=== PATIENT | female | born 1950 | race Caucasian/White ===

== ENCOUNTER 2023-10-11 09:47 | Outpatient (RCR) | payer MEDICARE, OTHER, SELFPAY | END 2023-10-11 23:59 | disposition home or self-care (01) | LOC: ROT 09:47 | PROVIDERS: ATTENDING PHYSICIAN Nurse Practitioner Adult Health; FAMILY PHYSICIAN Nurse Practitioner | DX: R41.3 Other amnesia (principal); Z73.6 Limitation of activities due to disability | CPT/HCPCS: 97167; 97530 ==

== ENCOUNTER 2023-11-08 06:17 | Outpatient (RCR) | payer MEDICARE, OTHER, SELFPAY | END 2023-11-08 23:59 | disposition home or self-care (01) | LOC: ROT 06:17 | PROVIDERS: ATTENDING PHYSICIAN Nurse Practitioner Adult Health; FAMILY PHYSICIAN Nurse Practitioner | DX: R41.3 Other amnesia (principal); R47.02 Dysphasia; Z73.6 Limitation of activities due to disability | CPT/HCPCS: 92507; 92523; 97530 ==

== ENCOUNTER 2023-11-26 06:57 | Outpatient (RCR) | payer MEDICARE, OTHER, SELFPAY | END 2023-11-26 09:00 | disposition home or self-care (01) | LOC: ROT 06:57 | PROVIDERS: ATTENDING PHYSICIAN Nurse Practitioner Adult Health; FAMILY PHYSICIAN Nurse Practitioner | DX: R41.3 Other amnesia (principal); R47.02 Dysphasia; F80.2 Mixed receptive-expressive language disorder | CPT/HCPCS: 92507 ==

== ENCOUNTER → 2023-12-12 08:14 | Outpatient (REF) | payer MEDICARE, OTHER, SELFPAY | LOC: HWRCS 08:14 | PROVIDERS: ATTENDING PHYSICIAN Nuclear Medicine Nuclear Cardiology; FAMILY PHYSICIAN Nurse Practitioner | DX: I10 Essential (primary) hypertension (principal); I34.9 Nonrheumatic mitral valve disorder, unspecified; I35.1 Nonrheumatic aortic (valve) insufficiency; E78.00 Pure hypercholesterolemia, unspecified | CPT/HCPCS: 93306 ==

== ENCOUNTER → 2024-06-20 09:21 | Outpatient (REF) | payer MEDICARE, OTHER, SELFPAY ==
[2024-06-20 12:34] LABS: ALT (SGPT) 22 U/L (0-35); AST (SGOT) 33 U/L (14-36); Albumin 4.3 g/dl (3.5-5.0); Alkaline Phosphatase 71 U/L (38-126); Blood Urea Nitrogen 19 mg/dl (7-17); Calcium 9.5 mg/dl (8.4-10.2); Carbon Dioxide 29 mmol/L (22-30); Chloride 95 mmol/L (98-107); Glucose 91 mg/dl (70-99); Potassium 4.3 mmol/L (3.5-5.1); Sodium 134 mmol/L (135-145); Total Bilirubin 0.7 mg/dl (0.2-1.3); Total Cholesterol 225 mg/dl (50-199); Total Protein 6.7 g/dl (6.3-8.2); Triglyceride 146 mg/dl (10-149); Very Low Density Lipoprotein 29 mg/dl (0-30); eGFR > 60.00
[2024-06-20 12:44] LABS: HDL Cholesterol 74 mg/dl; LDL Cholesterol, Calculated 122 mg/dl
[2024-06-20 12:50] LABS: % Basophils 0.6 % (0-2); % Eosinophils 1.1 % (0-6); % Immature Granulocytes 0.2 % (0-0.5); % Lymphocytes 24.4 % (20.5-51.1); % Monocytes 6.9 % (1.7-9.3); % Neutrophils 66.8 % (42.2-75.2); Absolute Eosinophils 0.1 10^3/uL (0-0.7); Absolute Lymphocytes 1.6 10^3/uL (1.2-3.4); Absolute Monocytes 0.5 10^3/uL (0.1-0.6); Absolute Neutrophils 4.4 10^3/uL (1.4-6.5); Hemoglobin 12.9 g/dL (12.0-16.0); Mean Corp Hgb Conc. 33.9 g/dL (33.0-37.0); Mean Corpuscular Hgb 31.6 pg (27.0-31.0); Mean Corpuscular Volume 93.1 fL (81.0-99.0); Mean Platelet Volume 10.5 fL (7.4-10.4); Nucleated Red Blood Cells % 0 %; Platelet Count 215 10^3/uL (130-400); Red Blood Cell Count 4.08 10^6/uL (4.20-5.40); Red Cell Dist. Width 12.3 % (11.5-14.5); White Blood Cell Count 6.6 10^3/uL (4.8-10.8)
== END ==
LOC: HWLAB 09:21
DX: I10 Essential (primary) hypertension (principal); Z82.49 Family history of ischemic heart disease and other diseases of the circulatory system
CPT/HCPCS: 36415; 80053; 80061; 85025

== ENCOUNTER → 2024-07-08 13:09 | Outpatient (REF) | payer MEDICARE, OTHER, SELFPAY | LOC: HWWDC 13:09 | PROVIDERS: ATTENDING PHYSICIAN Nurse Practitioner; FAMILY PHYSICIAN Nurse Practitioner Adult Health | DX: Z12.31 Encounter for screening mammogram for malignant neoplasm of breast (principal) | CPT/HCPCS: 77063; 77067 ==

== ENCOUNTER → 2024-11-21 15:19 | Outpatient (REF) | payer MEDICARE, OTHER, SELFPAY | LOC: PAVMRI 15:19 | PROVIDERS: ATTENDING PHYSICIAN Orthopaedic Surgery; FAMILY PHYSICIAN Nurse Practitioner | DX: M54.16 Radiculopathy, lumbar region (principal) | CPT/HCPCS: 72148 ==

== ENCOUNTER 2024-12-19 20:05 | Emergency (ER) | payer MEDICARE, OTHER, SELFPAY ==
[2024-12-19 20:10] VITALS: BP 148/59
--- NOTE | 2024-12-19 21:47 | ED.GENMED ---
History of Present Illness
General
Chief Complaint: Musculo-Skeletal Complaint
Source: patient and spouse
Time Seen by Provider: 12/19/24 21:20
History of Present Illness
History of Present Illness:
74-year-old female who presents complaining of injury to her right leg. She states she hit it on a piece of furniture. She now notes swelling. She states she is able to walk. States just kind of galeas in that area. She is able to bear weight.
No other injuries noted. Is not anticoagulated. states that she is scheduled for an epidural upcoming due to neuropathic pain in the right leg
Past History
Past History
ED Past Medical History: HTN; Negative Hypercholesterolemia or NIDDM
Social History
Tobacco: Non-smoker
Personal:
Phy Exam
Physical Exam
Physical Exam:
CONSTITUTIONAL Vital signs reviewed, Patient alert and oriented to person, place and time. Well-appearing
HEAD atraumatic, normocephalic.
EYES eyelids normal to inspection, Extraocular muscles intact, Conjunctiva normal, Sclera normal.
NECK normal range of motion, Trachea midline, no jugular venous distention.
RESP no respiratory distress
BACK No obvious deformities
UPPER EXTREMITY Gross Range of motion normal, gross motor strength normal
LOWER EXTREMITY Gross range of motion normal, Gross motor strength normal. Patient able to bear weight. Patient does have noted hematoma to the medial aspect of the right proximal lower leg. Just off the medial aspect of the tibia. She is able
to walk. She has normal distal perfusion. No redness. No skin breaks. Hematoma is approximately 8 cm x 6 cm
NEURO Speech normal, No focal motor deficits include, [place] coma scale 15, Memory normal, Cranial Nerves intact to screening exam.
SKIN Skin warm, dry, and normal in color.
PSYCHIATRIC Patient oriented to person place and time, Normal affect.
Course
Orders/Labs/Results
Orders:
Orders
12/19/24 20:24
CR Knee- Right 4 Or More View* Urgent
Comment:
Reason For Exam: pain, bruising
Vital Signs
Initial and Last Documented VS:
Initial Vital Signs
Temp Pulse Resp BP Pulse Ox
98 F 61 16 148/59 96
12/19/24 20:10 12/19/24 20:10 12/19/24 20:10 12/19/24 20:10 12/19/24 20:10
Last Documented Vital Signs
Temp Pulse Resp BP Pulse Ox
98 F 61 16 148/59 96
12/19/24 20:10 12/19/24 20:10 12/19/24 20:10 12/19/24 20:10 12/19/24 20:10
MDM/Problems Addressed
Differential Diagnosis Includes:
Tibial plateau fracture, knee injury, fibular injury
MDM/Problems Addressed:
Hematoma
*Radiology
Radiology exam reviewed: preliminary read by ED provider and all reviewed NAD by ED Provider
*Pulse Oximetry
Patient hypoxic: no
*Critical Care Note
Total Time (30-74mins, 75-104mins- exclusive of procedures): Not Applicable
Data Reviewed
Source: patient and spouse
Further Testing Considered But Not Given:
Consider CT with patient is able to bear weight without difficulty
Patient Management
Escalation/DeEscalation of care consider admission/obs:
Noted hematoma. Recommended icing elevation. After few days warm compresses may help. Outpatient follow-up recommended. Compressive dressing applied
ED Attending Note
-
Portions of this chart may have been created with voice recognition software.� Occasional wrong word or��sound alike� substitutions may have occurred due to the inherent limitations of voice recognition software.
Discharge Plan
Departure
Patient Disposition: Home (Routine Discharge)
Date of Disposition: 12/19/24
Time of Disposition: 21:50
Patient with high blood pressure during this ER visit?: Yes
Discharge Problem:
Hematoma, Injury of knee
Instructions: Contusion (DC), BLOOD PRESSURE, Hematoma
Prescriptions:
No Action
meloxicam 7.5 MG tablet
7.5 mg PO DAILY
Lopressor:
5 mg DAILY
pantoprazole [Protonix] 40 mg tablet,delayed release (DR/EC)
40 mg PO DAILY Qty: 30 0RF
Referrals:
Artur Benoit MD [Family Provider] -
Activity Restrictions/Additional Instructions:
Please ice your injury once every 1-2 hours for the next 2 days. On the third day it is reasonable to apply warm compresses to try to help the hematoma reabsorb. You can expect bruising further down on your leg as the hematoma starts to be
reabsorbed and spreads under the skin. You can also expect ankle swelling. Return immediately for worsening pain, numbness, difficulty bearing weight, or any other concerns. Keep your leg elevated when resting.
Interventions
Interventions:
*Risk Screen - Suicide Last Done: 12/19/24 20:12
*General Assessment Last Done: 12/19/24 20:54
*Neglect/Abuse Screening Last Done: 12/19/24 20:12
ED-Musculoskeletal Assessment Last Done: 12/19/24 20:54
Discharge Date and Time
Print Language: MALDIVIAN
== END 2024-12-19 21:59 | disposition home or self-care (01) ==
LOC: EMR 20:05
PROVIDERS: EMERGENCY PHYSICIAN Emergency Medicine; FAMILY PHYSICIAN Internal Medicine
DX: S80.11XA Contusion of right lower leg, initial encounter (principal); W22.09XA Striking against other stationary object, initial encounter; I10 Essential (primary) hypertension
CPT/HCPCS: 99283; 73564

== ENCOUNTER → 2025-06-03 08:37 | Outpatient (REF) | payer MEDICARE, OTHER, SELFPAY ==
[2025-06-03 12:21] LABS: Hematocrit 39.1 % (37.0-47.0); Hemoglobin 12.7 g/dL (12.0-16.0); Mean Corp Hgb Conc. 32.5 g/dL (33.0-37.0); Mean Corpuscular Volume 92.4 fL (81.0-99.0); Nucleated Red Blood Cells % 0 %; Platelet Count 220 10^3/uL (130-400); Red Cell Dist. Width 12.6 % (11.5-14.5)
[2025-06-03 12:36] LABS: ALT (SGPT) 16 U/L (0-35); AST (SGOT) 26 U/L (14-36); Albumin 4.3 g/dl (3.5-5.0); Alkaline Phosphatase 71 U/L (38-126); Blood Urea Nitrogen 20 mg/dl (7-17); Calcium 9.3 mg/dl (8.4-10.2); Carbon Dioxide 33 mmol/L (22-30); Chloride 103 mmol/L (98-107); Glucose 88 mg/dl (70-99); HDL Cholesterol 68 mg/dl; LDL Cholesterol, Calculated 126 mg/dl; Potassium 4.2 mmol/L (3.5-5.1); Sodium 140 mmol/L (135-145); Total Protein 6.7 g/dl (6.3-8.2); Very Low Density Lipoprotein 25 mg/dl (0-30); eGFR > 60.00
== END ==
LOC: HWLAB 08:37
DX: I10 Essential (primary) hypertension (principal); E78.2 Mixed hyperlipidemia; I34.9 Nonrheumatic mitral valve disorder, unspecified; I35.1 Nonrheumatic aortic (valve) insufficiency
CPT/HCPCS: 36415; 80053; 80061; 84443; 85025

== ENCOUNTER → 2025-07-01 06:56 | Outpatient (REF) | payer MEDICARE, OTHER, SELFPAY | LOC: HWWDC 06:56 | DX: Z12.31 Encounter for screening mammogram for malignant neoplasm of breast (principal); Z78.0 Asymptomatic menopausal state | CPT/HCPCS: 77063; 77067; 77080 ==